=== PATIENT | male | born 1950 | race Caucasian/White ===

== ENCOUNTER 2022-04-15 14:42 | Emergency (ER) | payer MEDICARE, SELFPAY ==
[2022-04-15 14:54] VITALS: BP 196/104; PULSE 57; RESP 17; TEMP 36.8; O2SAT 99; BMI 27.2
--- NOTE | 2022-04-15 14:57 | DI.RAD.S_ITS ---
PROCEDURE: XR FINGER LT MIN 2V INDICATIONS: wound TECHNIQUE: AP hand, 2 views of the left 2nd finger(s) acquired. COMPARISON: None. FINDINGS: Bones: No fractures or dislocations. No suspicious bony lesions. Soft tissues: No suspicious soft tissue calcifications. No left 2nd digit radiopaque foreign body. Tiny radiopaque densities adjacent to the left 1st metacarpal and proximal phalanx are presumably remote and unrelated to the current presentation. IMPRESSION: No fracture or radiopaque foreign body in the left 2nd digit. Dictated by: Ron Agosto M.D. on 04/15/2022 at 15:25 Approved by: Ron Agosto M.D. on 04/15/2022 at 15:26
[2022-04-15] MEDS: TET,DIPH,PERTUSS(ACELL),VAC/PF 0.5 ML SYRINGE IM (15:01)
--- NOTE | 2022-04-15 19:27 | ED.WOUNDLAC ---
HPI - Wound/Laceration General Chief Complaint: Wound/Laceration Stated Complaint: Lt finger laceration Time Seen by Provider: 04/15/22 19:27 Source: patient Mode of arrival: Ambulatory Limitations: no limitations History of Present Illness HPI narrative: Patient is a 71-year-old male who is here for evaluation of a laceration to his left 2nd finger. He cut it on a saw. Does need a tetanus shot. He went to the walk-in clinic and then was sent to the emergency department. Was covered with a bandage prior to arrival. No intervention other than covering with a bandage prior to arrival. No other injuries from the event. Related Data Home Medications Medication Instructions Recorded Confirmed hydrochlorothiazide PO 04/15/22 04/15/22 lisinopril PO 04/15/22 04/15/22 Previous Rx's Medication Instructions Recorded cephalexin 500 mg capsule 500 mg PO QID 5 days #20 caps 04/15/22 Allergies Allergy/AdvReac Type Severity Reaction Status Date / Time No Known Drug Allergies Allergy Verified 04/15/22 14:58 Review of Systems Constitutional Constitutional: Reports system reviewed and no additional complaints, except as documented Musculoskeletal Musculoskeletal: Reports system reviewed and no additional complaints, except as documented Integumentary/Breasts Skin/Breast: Reports system reviewed and no additional complaints, except as documented Neurologic Neurologic: Reports system reviewed and no additional complaints, except as documented Hematologic/Lymphatic On Anticoagulants: No Patient History Social History Smoking Status: Never smoker Smoking Status: Never smoker alcohol intake frequency: other Substance Use Type: does not use Exam Initial Vital Signs Initial Vital Signs: Vital Signs Temperature 98.2 F 04/15/22 14:54 Pulse Rate 57 L 04/15/22 14:54 Respiratory Rate 17 04/15/22 14:54 Blood Pressure 196/104 H 04/15/22 14:54 Pulse Oximetry 99 04/15/22 14:54 Oxygen Delivery Method 04/15/22 14:54 Cardio Pulses: radial pulses present on the left Skin Other: Very irregular/stellate laceration to the volar aspect of the left 2nd digit. Does not involve the nail. There is no bone exposure. Neuro Sensory Exam: no sensory deficits noted Extrem Other: Full range of motion of the PIP DI P and MCP joint of the left 2nd digit. Procedures Laceration Repair Laceration 1: Site: hand Side (If applicable): left Size (cm): 2 Description: stellate and irregular Depth: simple, single layer Pre-repair: wound explored, irrigated extensively and deep structures intact Skin layer closed with: nylon Skin layer suture size: 4-0 Number of sutures: 10 Technique: simple, interrupted Nerve Block Nerve Block 1: Local Anesthetic: lidocaine 2% Amount of anesthesia used (mL): 5 Side: left Nerve Blocks: digital Procedure Successful: Yes Patient Tolerated Procedure: Well Complications: none Course Orders Ordered: Discontinued Medications Bacitracin (Bacitracin Oint 0.9 Gm Pckt) 1 applic TOP NOW ONE Stop: 04/15/22 21:05 Last Admin: 04/15/22 21:16 Dose: 1 applic Documented By: GOPAL Cephalexin HCl (Cephalexin 250 Mg Capsule) 500 mg PO NOW ONE Stop: 04/15/22 21:07 Last Admin: 04/15/22 21:14 Dose: 500 mg Documented By: GOPAL Diphtheria/Tetanus/Acell Pertussis (Tet,Diph,Pertuss(Acell),Vac/Pf 0.5 Ml Syringe) 0.5 ml IM .ONCE ONE Stop: 04/15/22 14:54 Last Admin: 04/15/22 15:01 Dose: 0.5 ml Documented By: ANUPAM Lorazepam (Lorazepam 0.5 Mg Tablet) 1 mg PO NOW ONE Stop: 04/15/22 19:28 Last Admin: 04/15/22 19:36 Dose: 1 mg Documented By: GOPAL Vital Signs Vital signs: Vital Signs - 8 hr 04/15/22 21:25 Pulse Rate 67 Respiratory Rate 18 Blood Pressure 153/97 H Pulse Oximetry 96 Oxygen Delivery Method Room Air MDM - Wound/Laceration Imaging Data Extremity x-ray #1: Radiologist's Impression: [address] [address] XRay Report Signed Patient: Toby Grijalva MR#: [id number] : 1950 Acct:[id number] Age/Sex: 71 / M Date of Service: 04/15/22 Loc: ED Accession Number: [id number] ?? Procedure: XR finger LT min 2V Ordering Provider: Kirsten Will D.O. PROCEDURE:? XR FINGER LT MIN 2V ? INDICATIONS:? wound ? TECHNIQUE:? AP hand, 2 views of the left 2nd finger(s) acquired.? ? COMPARISON:? None. ? FINDINGS:? ? Bones:? No fractures or dislocations.? No suspicious bony lesions.? ? Soft tissues:? No suspicious soft tissue calcifications.? No left 2nd digit radiopaque foreign body.? Tiny radiopaque densities adjacent to the left 1st metacarpal and proximal phalanx are presumably remote and unrelated to the current presentation. ? IMPRESSION:? No fracture or radiopaque foreign body in the left 2nd digit. ? ? Dictated by: Ron Agosto M.D. on 04/15/2022 at 15:25 ? ? Approved by: Ron Agosto M.D. on 04/15/2022 at 15:26?? MDM Narrative Medical decision making narrative: Tetanus was updated. Ativan was given because the patient was very anxious about the injury and the repair. X-ray shows no signs of fracture. The wound was cleaned. Was closed as described above. Given the nature of the wound will start the patient on antibiotics. Was given his 1st dose here in the ER secondary to the time of day and no pharmacy being open. A prescription was sent to the pharmacy of his choice. He was given care instructions and return precautions. He expressed understanding and agreement. Discharge Plan Departure Patient Disposition: Home Clinical Impression: Laceration of finger of left hand without damage to nail Instructions: DI for Laceration Repair Activity Restrictions/Additional Instructions: Leave the bandage was placed today in place for the next 24 hours. After that you can take it off. You can use topical antibiotic ointment. You can wash her hands like normal but do not soak your hands and anything. A prescription for antibiotics was sent to [facility]. Return to the emergency department for any new or worsening symptoms Prescriptions: New cephalexin 500 mg capsule 500 mg PO QID 5 Days Qty: 20 0RF No Action lisinopril PO hydrochlorothiazide PO Referrals: Miscellaneous,DoctorMD [Primary Care Provider] -
[2022-04-15] MEDS: LORazepam 0.5 MG TABLET 1 MG PO (19:36)
[2022-04-15] MEDS: cephALEXin 250 MG CAPSULE 500 MG PO (21:14)
[2022-04-15] MEDS: BACITRACIN OINT 0.9 GM PCKT 1 APPLIC TOP (21:16)
[2022-04-15 21:25] VITALS: BP 153/97; PULSE 67; RESP 18; O2SAT 96
== END 2022-04-15 21:25 | disposition home or self-care (01) ==
PROVIDERS: Emergency Provider Emergency Medicine
DX: S61.211A Laceration without foreign body of left index finger without damage to nail, initial encounter (principal); W27.0XXA Contact with workbench tool, initial encounter; Z23 Encounter for immunization
CPT/HCPCS: 12001; 64450; 73140; 90471; 99283; 90715